=== PATIENT | female | born 1965 | race Caucasian/White ===

== ENCOUNTER 2018-01-18 07:55 | Inpatient (IN) | payer OTHER ==
[~2018-01-18] VITALS: Ht 175.3 cm; Wt 87.5 kg
[~2018-01-18 07:55] MED LIST: ANTIVERT 25MG #1 PAC PO; VALIUM5 M1 PO; ZOFRAN ODT4 MG PO
--- NOTE | 2018-01-18 08:03 | ED GI/GU/ABDOMINAL COMPLAINT ---
History of Present Illness General Chief Complaint: Abdominal Pain/Flank Pain Stated Complaint: BIBA ABDOMINAL PAIN Source: patient, family, old records, EMS Exam Limitations: no limitations Vital Signs & Intake/Output Vital Signs & Intake/Output Vital Signs Date Time Temp Pulse Resp B/P B/P Pulse O2 O2 Flow FiO2 Mean Ox Delivery Rate 01/18 1309 96 Room Air 01/18 1205 98.2 78 18 142/80 94 Room Air 01/18 1005 98.5 79 18 157/72 99 Room Air 01/18 0757 97.0 86 18 153/75 100 Room Air Allergies Coded Allergies: NO KNOWN ALLERGIES (09/15/15) Reconcile Medications Cyclobenzaprine HCl 10 MG TABLET BACK PAIN (Reported) Oxycodone HCl/Acetaminophen (Oxycodone-Acetaminophen 10-325) 10 MG-325 MG TABLET 1 TAB PO Q4P PRN BACK PAIN (Reported) Pravastatin Sodium 20 MG TABLET 1 TAB PO DAILY HIGH CHOLESTEROL (Reported) Triage Nurses Notes Reviewed? yes LMP (ages 10-50): post menopausal ? n Is pt currently ? No Onset: Just prior to arrival Duration: hour(s):, constant, continues in ED Timing: recent history Quality/Severity: severe, stabbing, vomiting Location: right upper quadrant Radiation: back, epigastric Activities at Onset: sleep Prior Abdominal Problems: similar symptoms Past Sexual History: Unobtainable at this time Modifying Factors: Worsens With: breathing, lying down, movement, palpation. Associated Symptoms: abdominal pain, loss of appetite, nausea/vomiting HPI: 2 hours prior to admission patient awoke with severe sharp progressive right upper quadrant pain radiating to the epigastrium and back associated with nausea vomiting diaphoresis anxiety worse with deep breath movement palpation. She denies fever chills chest pain cough shortness of breath headache dysuria rash bleeding. Past History Travel History Traveled to [place] past 21 day No Medical History Any Pertinent Medical History? see below for history Neurological: NONE EENT: NONE Cardiovascular: HIGH CHOLESTEROL Respiratory: NONE Gastrointestinal: pancreatitis Hepatic: NONE Renal: NONE Musculoskeletal: chronic back pain Psychiatric: NONE Endocrine: NONE Blood Disorders: NONE Cancer(s): NONE SUPERINTENDENT GENERAL/Reproductive: NONE Surgical History Surgical History: non-contributory Psychosocial History What is your primary language Thai Tobacco Use: Refused to answer Family History Hx Contributory? No Review of Systems Review of Systems Constitutional: Reports: see HPI, diaphoresis. EENTM: Reports: no symptoms. Respiratory: Reports: no symptoms. Cardiovascular: Reports: no symptoms. GI: Reports: see HPI, abdominal pain, nausea, vomiting. Genitourinary: Reports: no symptoms. Musculoskeletal: Reports: no symptoms. Skin: Reports: no symptoms. Neurological/Psychological: Reports: no symptoms. Hematologic/Endocrine: Reports: no symptoms. Immunologic/Allergic: Reports: no symptoms. All Other Systems: Reviewed and Negative Physical Exam Physical Exam General Appearance: well developed/nourished, alert, awake, anxious, severe distress, obese Head: atraumatic, normal appearance Eyes: Bilateral: normal appearance, PERRL, EOMI, normal inspection. Ears, Nose, Throat, Mouth: hearing grossly normal, moist mucous membrane Neck: normal inspection, supple, full range of motion, normal alignment Respiratory: normal breath sounds, chest non-tender, no respiratory distress, quiet respiration, lungs clear Cardiovascular: regular rate/rhythm, normal peripheral pulses, norml femoral pulses equa Peripheral Pulses: 4+ carotid (R), 4+ carotid (L) Gastrointestinal: normal bowel sounds, distention, guarding, rebound, tenderness Back: normal inspection, normal range of motion Extremities: normal range of motion, no ligament instability Neurologic/Psych: no motor/sensory deficits, awake, alert, oriented x 3, normal gait, normal mood/affect, medical laboratory specialist II-XII nml as tested Skin: intact, normal color, diaphoresis Core Measures ACS in differential dx? No Sepsis Present: No Sepsis Focused Exam Completed? No Ayesha's Criteria Ayesha's Criteria Response Value LDH > 350 IU/L on Admission yes 1 Blood Glucose > 200 mg/dL yes 1 Total 2 Progress Differential Diagnosis: appendicitis, gastritis, pancreatitis, PUD/GERD, UTI/ pyelo Plan of Care: Orders Procedure Date/time Status PHOSPHORUS 01/19 06 Active LIPASE 01/19 600 Active HEPATIC FUNCTION PANEL 01/19 600 Active CBC WITHOUT DIFFERENTIAL 01/19 600 Active BASIC ELECTROLYTES PLUS BUN&CR 01/19 600 Active AMYLASE 01/19 06 Active Nothing by Mouth 01/18 L Complete Nothing by Mouth 01/18 D Active Pathway - chart 01/18 1115 Active Pathway - chart 01/18 1113 Active LIPID PANEL 01/18 1108 Active Patient Data 01/18 1053 Active OXYGEN SETUP (GEN) 01/18 1045 Active Saline Lock 01/18 1045 Active Vital Signs 01/18 1045 Active Activity/Ambulation 01/18 1045 Active Code Status 01/18 1045 Active Add-on Test (ER Only) 01/18 1009 Active LDH (LACT ACID DEHYDROGENASE) 01/18 0840 Active GLYCOSYLATED HGB 01/18 0840 Active URINALYSIS 01/18 0801 Active MAGNESIUM 01/18 0800 Active LIPASE 01/18 0800 Active COMPREHENSIVE METABOLIC PANEL 01/18 0800 Active CBC WITHOUT DIFFERENTIAL 01/18 0800 Complete Intake & Output 01/18 0759 Active House Staff 01/18 UNK Active Lab Add-on Test 01/18 UNK Active VTE Mechanical Prophylaxis 01/18 UNK Active FingerStick- Glucose 01/18 UNK Active Current Medications Sig/Belen Start time Last Medication Dose Stop Time Status Admin Enoxaparin Sodium 40 MG DAILY 01/19 1000 AC (Lovenox) Lactated Ringer's 1,000 ML Q13H 01/18 1115 AC 01/18 (Lactated Ringers) 01/19 0414 1228 Morphine Sulfate 2 MG Q4P PRN 01/18 1115 AC 01/18 (MORPHINE SULFATE) 1202 Laboratory Tests 01/18/18 0840: Anion Gap 22 H, Estimated GFR > 60, BUN/Creatinine Ratio 22.2, Glucose 249 H, Hemoglobin A1c Pending, Calcium 9.4, Magnesium 1.9, Total Bilirubin 0.5, AST 48 H, ALT 43, Alkaline Phosphatase 86, Lactate Dehydrogenase 610, Total Protein 7.8 , Albumin 4.7, Globulin 3.1, Albumin/Globulin Ratio 1.5, Lipase 7146 H, CBC w Diff NO MAN DIFF REQ, RBC 4.21, MCV 87.8, MCH 29.4, MCHC 33.5, RDW 13.9, MPV 7.8 , Gran % 75.1, Lymphocytes % 17.6 L, Monocytes % 5.1, Eosinophils % 1.8, Basophils % 0.4, Absolute Granulocytes 11.1 H, Absolute Lymphocytes 2.6, Absolute Monocytes 0.7 H, Absolute Eosinophils 0.3, Absolute Basophils 0.1 Diagnostic Imaging: Viewed by Me: CT Scan. Discussed w/RAD: CT Scan. Radiology Impression: Findings most consistent with acute pancreatitis. Inflammatory changes surrounding the pancreatic head with edematous appearance of the pancreatic head and neck. No fluid collection. Hepatic steatosis. Status post cholecystectomy with intrahepatic and extrahepatic biliary ductal dilatation. The common bile duct is most prominently dilated, measuring up to 1.7 cm. No filling defects seen. Initial ED EKG: none Departure Departure Time of Disposition: 1000 Disposition: STILL A PATIENT Condition: Stable Clinical Impression Primary Impression: Pancreatitis, acute Referrals: Beatriz HOLCOMB,Leslie Galaviz (PCP/Family) Departure Forms: Customer Survey General Discharge Information Admission Note Spoke With: Manpreet Soto MD Documentation of Exam: Documentation of any treatments & extenuating circumstances including Concerns Regarding Discharge (functional status, medication knowledge or non-compliance, living conditions, etc.) that warrant an admission rather than observation: Nothing by mouth IV fluids IV analgesia GI evaluation medication adjustment continuing care discharge planning Critical Care Note Critical Care Note Critical Care Time: 30-74 min (40)
[2018-01-18 08:53] LABS: ABSOLUTE BASOPHIL COUNT 0.1 /CUMM (0.0-0.2); ABSOLUTE EOSINOPHIL COUNT 0.3 /CUMM (0.0-0.7); ABSOLUTE GRANULOCYTE CT 11.1 /CUMM (1.4-6.5); ABSOLUTE LYMPH COUNT 2.6 /CUMM (1.2-3.4); ABSOLUTE MONOCYTE COUNT 0.7 /CUMM (0.10-0.60); BASOPHIL % 0.4 % (0.0-2.0); EOSINOPHIL % 1.8 % (0-5); HEMATOCRIT 36.9 % (37-47); MEAN CORPUSCULAR HGB 29.4 PG (27.0-31.0); MEAN CORPUSCULAR HGB CONC 33.5 G/DL (33.0-37.0); MEAN CORPUSCULAR VOLUME 87.8 FL (81.0-99.0); MEAN PLATELET VOLUME 7.8 FL (7.4-10.4); PLATELET COUNT 316 /CUMM (130-400); RBC DISTRIBUTION WIDTH 13.9 % (11.5-14.5); RED BLOOD CELL CT 4.21 /CUMM (4.20-5.40); WHITE BLOOD CELL COUNT 14.7 /CUMM (4.8-10.8)
[2018-01-18 08:59] LABS: GRANULOCYTE % 75.1 % (42.2-75.2)
[2018-01-18] MEDS ORDERED: OXYCODONE-ACET1 EAC1 PO (08:59)
[2018-01-18] MEDS ORDERED: PRAVASTATIN SOD20 M2 PO (08:59)
[2018-01-18] MEDS ORDERED: CYCLOBENZAPRINE10 M1 PO (08:59)
--- NOTE | 2018-01-18 10:39 | CT SCAN REPORT ---
EXAMINATION: CT ABDOMEN AND PELVIS WITH CONTRAST CLINICAL INFORMATION: Right upper quadrant tenderness. Nausea and vomiting. COMPARISON: None TECHNIQUE: Multidetector volumetric imaging was performed of the abdomen and pelvis following IV administration of 95 mL of Optiray 320 intravenous contrast. Sagittal and coronal reformatted images were obtained on the technologist's workstation. DLP: 336 mGy-cm FINDINGS: LUNG BASES: Right basilar subsegmental atelectasis. The visualized cardiac structures are unremarkable. LIVER, GALLBLADDER, AND BILIARY TREE: The liver is normal in size and shape with decreased attenuation. No focal hepatic lesion. There is mild intrahepatic biliary ductal dilatation. The patient is status post cholecystectomy. There is prominent dilatation of the common bile duct, measuring up to 1.7 cm. No filling defects seen. PANCREAS: There is prominent inflammatory stranding in the region of the pancreatic head with fluid extending along the right paracolic gutter. Somewhat hypoattenuating appearance of the pancreatic head and neck just above edema. No pancreatic ductal dilatation. No adjacent fluid collection. SPLEEN: Unremarkable. ADRENAL GLANDS: Unremarkable. KIDNEYS AND URETERS: The kidneys are normal in size, shape, and attenuation. No hydronephrosis, hydroureter, or calculi seen. No perinephric stranding. BLADDER: Unremarkable. GASTROINTESTINAL TRACT: The stomach is unremarkable. The small bowel is normal in caliber. No obstruction. No colonic wall thickening or inflammatory change. Normal appendix. No free air. ABDOMINAL WALL: No significant hernia is appreciated. LYMPH NODES: Normal. VASCULAR: Normal caliber aorta. Mild atherosclerotic calcifications. PELVIC VISCERA: The uterus and adnexa are unremarkable. OSSEOUS STRUCTURES: No acute or suspicious osseous abnormality. Mild degenerative changes of the spine. IMPRESSION: Findings most consistent with acute pancreatitis. Inflammatory changes surrounding the pancreatic head with edematous appearance of the pancreatic head and neck. No fluid collection. Hepatic steatosis. Status post cholecystectomy with intrahepatic and extrahepatic biliary ductal dilatation. The common bile duct is most prominently dilated, measuring up to 1.7 cm. No filling defects seen.
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
--- NOTE | 2018-01-18 13:45 | Patient Discharge Instructions ---
Discharge Instructions General Discharge Information You were seen/treated for: -Acute pancreatitis Special Instructions: -Follow up with your PCP after discharge -Follow up with your GI physician after discharge -Take your medications as prescribed Diet Recommended Diet: Low Fat Activity Full Activity/No Limits: Yes (As tolerated) Acute Coronary Syndrome Inclusion Criteria At DC or during hospital stay patient has or had the following: ACS DIAGNOSIS No Discharge Core Measures Meds if any: Prescribed or Continued at Discharge Meds if any: NOT Prescribed or Continued at Discharge Congestive Heart Failure Inclusion Criteria At DC or during hospital stay patient has or had the following: CHF DIAGNOSIS No Discharge Core Measures Meds if any: Prescribed or Continued at Discharge Meds if any: NOT Prescribed or Continued at Discharge Cerebrovascular accident Inclusion Criteria At DC or during hospital stay patient has or had the following: CVA/TIA Diagnosis No Discharge Core Measures Meds if any: Prescribed or Continued at Discharge Meds if any: NOT Prescribed or Continued at Discharge Venous thromboembolism Inclusion Criteria VTE Diagnosis No VTE Type NONE VTE Confirmed by (Test) NONE Discharge Core Measures - Per Current guidelines, there needs to be overlap - treatment for the first 5 days of Warfarin therapy. - If discharged on Warfarin prior to 5 days of - overlap therapy, the patient will need to be - assessed for post discharge needs including - *Post discharge parental anticoagulation - *Warfarin and/or parental anticoagulation education - *Follow up date to check INR post discharge At least 5 days overlap therapy as Inpatient No Meds if any: Prescribed or Continued at Discharge Note: Overlap Therapy is Warfarin and Anticoagulant Meds if any: NOT Prescribed or Continued at Discharge
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
[2018-01-18] MEDS ORDERED: ONDANSETRON4 MG/2 M3 IV (14:28)
[2018-01-18] MEDS ORDERED: MORPHINE SU4 MG/1 M2 IV (14:28)
[2018-01-18] MEDS ORDERED: LACTATED RING1000 ML IV (14:28)
[2018-01-18 17:00] VITALS: BP 148/78
== END 2018-01-18 18:28 | disposition short-term general hospital (02) | DRG 440 ==
LOC: ERH 07:55 → ERHI 10:45 → 2NA 10:45 → ENRESERV 12:18 → ENTRNSPT 13:15 → EDTRNSPT 13:21 → EDTRNSPTSTS 13:21 → 2NA 13:37 → CMPTRNSPT 13:41 → 2NA 18:28
PROVIDERS: Emergency Medicine
DX: K85.90 Acute pancreatitis without necrosis or infection, unspecified (principal); E78.5 Hyperlipidemia, unspecified; Z90.49 Acquired absence of other specified parts of digestive tract; M54.9 Dorsalgia, unspecified; Z79.891 Long term (current) use of opiate analgesic; Z87.891 Personal history of nicotine dependence; R73.9 Hyperglycemia, unspecified
CPT/HCPCS: 2NASP; 74177; 96374; 96375; 96376; J1650; J1885; J2405; J3250; J7120